=== PATIENT | female | born 1990 | race Caucasian/White ===

== ENCOUNTER 2017-12-18 18:18 | Emergency (ER) | payer OTHER, SELFPAY ==
[2017-12-18 18:26] VITALS: BP 130/65; PULSE 82; RESP 20; TEMP 37.1; O2SAT 98; BMI 34.4
--- NOTE | 2017-12-18 18:30 | DI.RAD.S_ITS ---
PROCEDURE: XR KNEE LT 3V INDICATIONS: fall, injury, pain TECHNIQUE: 3 views of the knee were acquired. COMPARISON: None. FINDINGS: Bones: No fractures or dislocations. No suspicious bony lesions. Surgical screw is noted traversing the distal femur. Hardware is intact without evidence of loosening. Soft tissues: No joint effusion. No suspicious soft tissue calcifications. IMPRESSION: No visualized acute fracture or dislocation. However, if clinical concern and/or pain persist, short interval imaging followup in 7-10 days is recommended, as occult injury cannot be definitively excluded. Dictated by: Lesa Bañuelos M.D. on 12/18/2017 at 20:40 Approved by: Lesa Bañuelos M.D. on 12/18/2017 at 20:40
--- NOTE | 2017-12-18 18:45 | ED.LOWEXIN ---
HPI - Extremity Injury (Lower) <Cynthia Soria PA-C - Last Filed: 12/18/17 21:51> General Chief Complaint: Extremity Injury, Lower Stated Complaint: FELL AT WORK,LEFT KNEE INJURY Time Seen by Provider: 12/18/17 18:45 Source: patient Mode of arrival: ambulatory Limitations: no limitations History of Present Illness HPI Narrative: This healthy 27-year-old slipped on some food at work and fell onto her left knee with it twisted behind her. She isn't sure whether she landed directly on the knee cap, but states she has had severe pain with any kind of movement or trying to bear weight since. She states that she hit hard when she fell. She states her hip seemed a little sore initially but feels fine now. She denies pain elsewhere in her leg such as her foot or ankle. She states that she can't tell if there is any weakness or laxity in her knee due to the pain. She is concerned because she had an ACL repair done on that knee 3 years ago and the anchor tore through her bone requiring a repeat repair, so concerned about the hardware. She denies any possibility of , she is on Depo-Provera and had her last injection . Related Data Previous Rx's Medication Instructions Recorded VIT#96/FERROUS FUM/FA 1 tab PO QDAY #90 tab 01/27/16 ( Vitamin) ibuprofen 600 mg PO Q6HP PRN #60 tab 02/04/16 albuterol sulfate [Ventolin HFA] 1 puff INH Q6HP PRN #8 gm 06/01/16 medroxyprogesterone 150 mg IM X1 #1 ea 06/02/16 Allergies Allergy/AdvReac Type Severity Reaction Status Date / Time venom-honey bee Allergy Intermediate SWELLING Unverified 09/08/17 12:37 [BEE VENOM (HONEY BEE)] iodine [IODINE] Allergy Mild RASH Unverified 09/08/17 12:37 Review of Systems <CHEMA James Last Filed: 12/18/17 21:51> Review of Systems All systems reviewed & are unremarkable except as noted in HPI and below PFSH <CHEMA James Last Filed: 12/18/17 21:51> Comment: No ETOH or street drugs Exam <CHEMA James Last Filed: 12/18/17 21:51> Narrative Exam Narrative: GENERAL APPEARANCE: Patient sitting comfortably, in no distress. LUNGS: Clear to auscultation bilaterally. HEART: Rate and rhythm regular without murmur, normal S1 and S2, no S3 or S4. MS: Moderate left knee effusion. She is tender across the joint line and a little bit superior to the patella. Range of motion is markedly limited secondary to tenderness. Unable to assess for laxity secondary to tenderness. She does not have tenderness over the lower leg or ankle. No point tenderness over the thigh or hip. EXTREMITIES: No cyanosis or edema Initial Vital Signs Initial Vital Signs: Vital Signs Temperature 98.8 F 12/18/17 18:26 Pulse Rate 82 12/18/17 18:26 Respiratory Rate 20 12/18/17 18:26 Blood Pressure 130/65 H 12/18/17 18:26 Pulse Oximetry 98 12/18/17 18:26 <Vivek Stuart DO - Last Filed: 12/19/17 05:01> Initial Vital Signs Initial Vital Signs: Vital Signs Temperature 98.8 F 12/18/17 18:26 Pulse Rate 82 12/18/17 18:26 Respiratory Rate 20 12/18/17 18:26 Blood Pressure 130/65 H 12/18/17 18:26 Pulse Oximetry 98 12/18/17 18:26 Course <Cynthia Soria PA-C - Last Filed: 12/18/17 21:51> Additional Information: Patient is able to ambulate a little bit with knee immobilizer. Unable to fully examine tonight due to degree of tenderness. She does have previous ACL repair times to due to problems with the hardware on that side. We discussed that certainly she could have another significant soft tissue injury. She is agreeable with re-evaluating this with her PCP or Orthopedics in a few days when hopefully the acute pain and swelling are better. She is on her feet constantly at work and advised she remain off of work until then. She is agreeable and will continue ibuprofen at home. She agreed to return if any acutely worsening symptoms in the interim Orders Ordered: Discontinued Medications Hydrocodone Bitart/Acetaminophen (Vicodin Prepack) 1 bottle MISC SEEINSTR ONE Stop: 12/18/17 20:58 Last Admin: 07/21/18 21:12 Dose: 1 bottle Vital Signs - 8 hr 12/18/17 21:18 Temperature 98.2 F Pulse Rate 78 Respiratory Rate 18 Blood Pressure 120/65 Pulse Oximetry 100 <Vivek Stuart DO - Last Filed: 12/19/17 05:01> Orders Ordered: Discontinued Medications Hydrocodone Bitart/Acetaminophen (Vicodin Prepack) 1 bottle MISC SEEINSTR ONE Stop: 12/18/17 20:58 Last Admin: 12/18/17 21:12 Dose: 1 bottle Vital Signs - 8 hr 12/18/17 21:18 Temperature 98.2 F Pulse Rate 78 Respiratory Rate 18 Blood Pressure 120/65 Pulse Oximetry 100 MDM - Extremity Injury (Lower) <Cynthia Soria PA-C - Last Filed: 12/18/17 21:51> Imaging Data knee: Radiologist's impression: View Report History [address] [address] XRay Report Signed Patient: Marika Yin MR#: [id number] : 1990 Acct:[id number] Age/Sex: 27 / F Date of Service: 12/18/17 Loc: ED Accession Number: [id number] Procedure: XR knee LT 3V Ordering Provider: Cyntiha Soria P.A-C PROCEDURE: XR KNEE LT 3V INDICATIONS: fall, injury, pain TECHNIQUE: 3 views of the knee were acquired. COMPARISON: None. FINDINGS: Bones: No fractures or dislocations. No suspicious bony lesions. Surgical screw is noted traversing the distal femur. Hardware is intact without evidence of loosening. Soft tissues: No joint effusion. No suspicious soft tissue calcifications. IMPRESSION: No visualized acute fracture or dislocation. However, if clinical concern and/or pain persist, short interval imaging followup in 7-10 days is recommended, as occult injury cannot be definitively excluded. Dictated by: Lesa Bañuelos M.D. on 12/18/2017 at 20:40 Approved by: Lesa Bañuelos M.D. on 12/18/2017 at 20:40 Discharge Plan Departure Patient Disposition: Home, Self-Care Clinical Impression: Effusion of left knee Discharge Date/Time: 12/18/17 21:20 Interventions: ED Discharge Assessment Last Done: 12/18/17 21:18 Instructions: DI for Knee Sprain, How to Use a Knee Immobilizer Activity Restrictions/Additional Instructions: It is not clear whether you just have a bad contusion to the knee with swelling in the soft tissues and a strain, versus another ligamentous injury. It is always possible that there is a fracture that did not show up on the x-ray as we talked about. Please wear the knee immobilizer and you can weightbear gently in that has you tolerate, but try to rest and elevate the knee over the next few days. Take ibuprofen 800 mg every 8 hr as needed for pain. You can also apply ice this evening. You should remain off of work since you are on your feet constantly, and follow up with your PCP or with Orthopedics 1st of next week to see how much you are improving and whether any further testing is needed. It is okay to see your PCP 1st if you wish, but I have given you the number for [facility] as well given your previous injury and surgery. Please return to the ED if you have any acutely worsening symptoms in the interim Thank you for your patience with our busy Emergency Department this evening. Prescriptions: No Action VIT#96/FERROUS FUM/FA ( Vitamin) 1 tab PO QDAY Qty: 90 RF: 3 ibuprofen 600 MG tablet 600 mg PO Q6HP PRNQty: 60 RF: 0 albuterol sulfate [Ventolin HFA] 90 MCG/PUFF HFA aerosol inhaler 1 puff INH Q6HP PRNQty: 8 RF: 0 medroxyprogesterone 150 MG/1 ML suspension 150 mg IM X1 Qty: 1 RF: 0 Referrals: [facility] [Outside] Roberto Downs MD [Primary Care Provider] - <Vivek Stuart DO - Last Filed: 12/19/17 05:01> [facility] ED Attending Nelia Attestation: I was immediately available in the department for consultation. Documentation has been reviewed. I agree with assessment and plan.
[2017-12-18 20:06] VITALS: BP 126/61; PULSE 76; RESP 18; TEMP 36.7; O2SAT 100
[2017-12-18] MEDS: HYDROCODONE/ACET 5/325 PREPACK 1 BOTTLE MISC (21:12)
[2017-12-18 21:18] VITALS: BP 120/65; PULSE 78; RESP 18; TEMP 36.8; O2SAT 100
== END 2017-12-18 21:20 | disposition home or self-care (01) ==
PROVIDERS: Emergency Provider Internal Medicine; Family Provider Obstetrics & Gynecology; PCP Family Medicine
DX: M25.462 Effusion, left knee (principal); Y99.0 Civilian activity done for income or pay
CPT/HCPCS: 73562; 99283

== ENCOUNTER 2018-05-17 10:39 | Day surgery (SDC) | payer OTHER, SELFPAY ==
[2018-05-13 08:52] VITALS: BMI 39.4
[2018-05-17 10:58] VITALS: BP 120/78; PULSE 86; RESP 13; TEMP 37; O2SAT 99; BMI 39.4
[2018-05-17] MEDS: LACTATED RINGERS 1,000 ML 42 ML IV (11:53)
[2018-05-17] MEDS: MIDAZOLAM 2 MG/2 ML VIAL IV (12:07)
--- NOTE | 2018-05-17 12:22 | SUR.PREOP ---
Block start time [1204] . Monitoring initiated and maintained throughout procedure. Oxygen and medications given per anesthesiologist instructions. Patient remained stable throughout procedure, no adverse reactions noted. Block end time [1217].
[2018-05-17] MEDS: CEFAZOLIN 2 GM/100 ML FROZ.PIGGY IV (12:40)
--- NOTE | 2018-05-17 12:49 | PM.PREOP ---
Pre-operative Note Interval Note Pre-op Check: Yes History & Physical Reviewed by Physician and Yes Exam Performed Changes: No
[2018-05-17] MEDS: BUPIVACAINE 0.5% (PF) VIAL 10 ML INJ (14:08)
[2018-05-17 14:27] VITALS: BP 134/74; PULSE 102; RESP 20; TEMP 36.4; O2SAT 97
--- NOTE | 2018-05-17 14:27 | PM.OP.1 ---
Operative Date/Time/Diagnoses Date of procedure: 05/17/18 Time of procedure: 14:15 Pre-op diagnosis: Failure of left knee ACL reconstruction Post-op diagnosis: same Procedure & Clinicians Procedure: Revision left knee anterior cruciate ligament reconstruction with tibialis anterior allograft Same procedure as scheduled: Yes Indications: The patient is a 27-year-old woman who previously has undergone an anterior cruciate ligament reconstruction elsewhere. She injured her knee at work and has had persistent instability despite nonoperative management since that injury. After discussion of the risks benefits and alternatives she has agreed to proceed with revision ACL reconstruction with allograft tendon. Risks discussed included but were not limited to: Failure to improve either pain or sensations of instability, stiffness, infection, deep venous thrombosis, pulmonary embolism, stroke, myocardial infarction, permanent paralysis and . Surgeon: Toni Balderrama Chief Risk Officer: Maame Weber Click Yes if Unassisted: No Anesthesia Type: General, Peripheral nerve block and Local Operative Notes Findings: 1. Minor scarring in the suprapatellar pouch 2. Normal patellofemoral joint 3. Normal medial and lateral gutters 4. Medial compartment with intact medial meniscus and minor chondromalacia of the femoral condyle, grade 2 in a small area on the weight-bearing surface. 5. Intercondylar notch notable for a small remnant of the previous graft with only sutures attached to the lateral femoral condyle and a loose bone fragment posteriorly presumably the bone block of a prior bone patellar tendon bone graft. 6. Intact lateral meniscus 7. Posterolateral compartment normal 8. Posterior medial compartment not visualized Closure Type: primary Specimen(s): none sent Implants & Drains: Arthrex ACL Tightrope femoral fixation and DePuy/Mitek Intrafix tibial fixation with a sheath and 7-9 mm X 30 mm screw. Applied: implant(s) Estimated Blood Loss (mL): 15 Blood products transfused: none Tourniquet time (min): 39 Procedure in detail: The patient was seen in the preoperative area where she identified the left knee as the operative site and this was marked with my initials. She received preoperative antibiotics with an appropriate 1st generation cephalosporin and underwent a femoral nerve block from Anesthesia for postoperative pain control. She was taken to the operating room and placed on the operating room table in a supine position. A tourniquet was placed about the proximal left thigh. The left leg was examined under anesthesia with findings of a grade 3 pivot shift and a grade 3 Hollie's. The left leg was prepared from the toes to the tourniquet with ChloraPrep in the usual fashion and draped through sterile drapes. A superior medial portal was created and the pump cannula inserted. The knee was inflated with arthroscopic solution and a lateral portal created for the arthroscope. Diagnostic arthroscopy ensued with the result given above. During diagnostic arthroscopy a medial portal was created for the probe and other tools. After confirming the diagnosis, the allograft was opened and prepared at the back table by my neurosurgical physician assistant. The graft remnant was excised in the knee. A flip cutter Reamer was placed in the center of the ACL footprint and used to ream a new femoral socket. A passing suture was placed. The tibial tunnel was then drilled in the center of the tibial footprint. Both of these were 8 mm tunnels to match the size of the graft. The passing suture was then pulled out through the tibial tunnel. This was used to pull the sutures from the Tightrope fixation device through the femoral tunnel. The femoral button was delivered to the lateral femoral cortex and purchase was checked by pulling firmly on the graft. The graft was then advanced into the femoral socket. The graft had been pre tensioned on the back table and tension was maintained on the inferior limbs of the graft while a dilator was placed in the tibial tunnel with the knee in full extension. This was followed by the tibial sheath and the interference screw. This gave good fixation in the tibia as well. I tested the knee for stability there was a grade 0 Hollie's and a grade 0 pivot shift. The femoral fixation was backed up by tying a knot over the button with the traction sutures. The throes of the suture were advanced to the button using a knot pusher. The sutures on both the femoral and tibial sides of the graft were then cut. All portal wounds were closed with 4 0 Monocryl. The tibial tunnel wound was closed with interrupted 3 O Vicryl subcutaneous sutures and 4 0 Monocryl. Steri-Strips were applied. Local anesthetic was injected for additional postoperative pain control. A dressing of sterile 4x4s, sterile cast padding and an Jaskaran wrap was applied. The patient was transported to the recovery room in good condition having tolerated the procedure well. Complications: none Condition: stable Disposition: PACU Plan for aftercare: The patient will be maintained toe-touch weight-bearing until her block has resolved. She may then weightbear as tolerated using crutches for comfort. She will be maintained on a standard ACL protocol however will not likely be released to full cutting activities for 9-12 months due to the use of an allograft.
[2018-05-17 14:30] VITALS: BP 132/94; PULSE 99; RESP 15; TEMP 36.4; O2SAT 98
[2018-05-17 14:35] VITALS: BP 129/86; PULSE 104; RESP 12; TEMP 37.2; O2SAT 97
[2018-05-17] MEDS: fentaNYL 100 MCG/2 ML INJ 50 MCG IV ×2 (14:40→14:45)
[2018-05-17 14:50] VITALS: BP 140/88; PULSE 93; RESP 20; TEMP 37.2; O2SAT 98
[2018-05-17 14:55] VITALS: BP 126/84; PULSE 100; RESP 18; TEMP 37.2; O2SAT 98
[2018-05-17] MEDS: OXYCODONE/ACETAMINOPHEN 5/325 TABLET 1 TAB PO (14:55)
== END 2018-05-17 15:26 | disposition home or self-care (01) ==
PROVIDERS: Family Provider Obstetrics & Gynecology; PCP Family Medicine; Visit Provider Orthopaedic Surgery
PROC: (CPT 29888; principal; 2018-05-17 12:45)
DX: S83.512A Sprain of anterior cruciate ligament of left knee, initial encounter (principal); E66.9 Obesity, unspecified; Z68.39 Body mass index [BMI] 39.0-39.9, adult; G89.18 Other acute postprocedural pain; Y92.511 Restaurant or cafe as the place of occurrence of the external cause; J45.909 Unspecified asthma, uncomplicated; F17.210 Nicotine dependence, cigarettes, uncomplicated; W01.0XXA Fall on same level from slipping, tripping and stumbling without subsequent striking against object, initial encounter
CPT/HCPCS: 29888; 64447; 64450; J0690; J1100; J2250; J2405; J2704; J3010

== ENCOUNTER 2020-04-23 13:49 | Emergency (ER) | payer OTHER, MEDICAID, SELFPAY ==
[2020-04-23 14:08] VITALS: BP 136/74; PULSE 98; RESP 16; TEMP 37.2; O2SAT 100; BMI 40.7
--- NOTE | 2020-04-23 14:53 | ED.URI ---
HPI - URI/Sore Throat General Chief Complaint: Upper Respiratory Symptoms Stated Complaint: Sore throat, think she has strep Time Seen by Provider: 04/23/20 14:10 Source: patient Mode of arrival: Ambulatory History of Present Illness HPI Narrative: 29yo female presents to the emergency department for a sore throat for the past 4 days. Patient states she was exposed to people who were positive for strep. She does have a history of allergies and currently has pets she has chronic rhinitis and asthma. She denies any worsening of these conditions. She denies any rhinorrhea, chest pain, cough, nausea, vomiting, diarrhea, dizziness, or any other concerns. Related Data Home Medications Medication Instructions Recorded Confirmed albuterol sulfate [Ventolin HFA] 1 puff INH Q6HP PRN 05/13/18 05/13/18 ibuprofen 600 mg PO Q6HP PRN 05/13/18 05/13/18 albuterol sulfate [ProAir HFA] 1 puff INHALATION Q6H PRN 05/17/18 05/17/18 Previous Rx's Medication Instructions Recorded VIT#96/FERROUS FUM/FA 1 tab PO QDAY #90 tab 01/27/16 ( Vitamin) medroxyprogesterone 150 mg IM X1 #1 ea 06/02/16 hydroxyzine pamoate 25 mg PO Q4HR PRN #40 cap 05/17/18 oxycodone 5 mg PO Q3HR PRN #40 tab 05/17/18 Allergies Allergy/AdvReac Type Severity Reaction Status Date / Time venom-honey bee Allergy Intermediate SWELLING Verified 05/17/18 11:14 [BEE VENOM (HONEY BEE)] iodine [IODINE] Allergy Mild RASH Verified 05/17/18 11:14 Patient History Medical History (Updated 03/10/18 @ 10:00 by Carla Mtz) Asthma Chicken pox (1995) Hayfever Surgical History (Updated 03/10/18 @ 10:00 by Carla Mtz) Anesthesia Status post knee surgery (10/12/14) Family History (Updated 03/10/18 @ 10:05 by Carla Mtz) Mother High cholesterol Grandfather Diabetes mellitus Cancer Pancreatic cancer Social History household members: significant other Smoking Status: Current every day smoker alcohol intake: former Smoking Status: Current every day smoker Substance Use Type: does not use Exam Initial Vital Signs Initial Vital Signs: Vital Signs Temperature 98.9 F 04/23/20 14:08 Pulse Rate 98 H 04/23/20 14:08 Respiratory Rate 16 04/23/20 14:08 Blood Pressure 136/74 04/23/20 14:08 Pulse Oximetry 100 04/23/20 14:08 Course Orders Ordered: ED Orders 04/23/20 14:51 COVID19 Stat Throat Culture Stat Vital Signs Vital signs: Vital Signs - 8 hr 04/23/20 14:08 Temperature 98.9 F Pulse Rate 98 H Respiratory Rate 16 Blood Pressure 136/74 Pulse Oximetry 100 MDM - URI/Sore Throat Lab Data Labs: Point of Care Testing Rapid Strep A Negative Discharge Plan Departure Prescriptions: No Action VIT#96/FERROUS FUM/FA ( Vitamin) 1 tab PO QDAY Qty: 90 RF: 3 medroxyprogesterone 150 MG/1 ML suspension 150 mg IM X1 Qty: 1 RF: 0 ibuprofen 600 MG tablet 600 mg PO Q6HP PRN (Reason: pain) RF: 0 albuterol sulfate [Ventolin HFA] 90 MCG/PUFF HFA aerosol inhaler 1 puff INH Q6HP PRN (Reason: Asthma) RF: 0 albuterol sulfate [ProAir HFA] 90 mcg/actuation Hfa Aerosol Inhaler 1 puff INHALATION Q6H PRN (Reason: Wheezing) RF: 0 oxycodone 5 mg Tablet 5 mg PO Q3HR PRN (Reason: Pain, Moderate (4-6)) Qty: 40 RF: 0 hydroxyzine pamoate 25 mg Capsule 25 mg PO Q4HR PRN (Reason: Spasms) Qty: 40 RF: 0
[2020-04-23 15:21] LABS: COVID19 -Nasal RAPID Negative (Negative)
--- NOTE | 2020-04-23 15:28 | ED.URI ---
HPI - URI/Sore Throat <JACKIE Wahl - Last Filed: 04/23/20 18:07> General Chief Complaint: Upper Respiratory Symptoms Stated Complaint: Sore throat, think she has strep Time Seen by Provider: 04/23/20 14:10 Source: patient Mode of arrival: Ambulatory History of Present Illness HPI Narrative: 29yo female presents to the ED for a sore throat for the past 4 days. Patient states she was recently exposed to children who are positive for strep. Patient has a history of seasonal allergies, she takes Singulair for these. She has a history of asthma. She denies any worsening asthma symptoms. Patient denies any increased rhinitis, cough, shortness of breath, fevers, nausea, vomiting, diarrhea, or any other concerns. She denies any known exposure to COVID-19. Related Data Home Medications Medication Instructions Recorded Confirmed albuterol sulfate [Ventolin HFA] 1 puff INH Q6HP PRN 05/13/18 05/13/18 ibuprofen 600 mg PO Q6HP PRN 05/13/18 05/13/18 albuterol sulfate [ProAir HFA] 1 puff INHALATION Q6H PRN 05/17/18 05/17/18 Previous Rx's Medication Instructions Recorded VIT#96/FERROUS FUM/FA 1 tab PO QDAY #90 tab 01/27/16 ( Vitamin) medroxyprogesterone 150 mg IM X1 #1 ea 06/02/16 hydroxyzine pamoate 25 mg PO Q4HR PRN #40 cap 05/17/18 oxycodone 5 mg PO Q3HR PRN #40 tab 05/17/18 Allergies Allergy/AdvReac Type Severity Reaction Status Date / Time venom-honey bee Allergy Intermediate SWELLING Verified 05/17/18 11:14 [BEE VENOM (HONEY BEE)] iodine [IODINE] Allergy Mild RASH Verified 05/17/18 11:14 Review of Systems <JACKIE Wahl - Last Filed: 04/23/20 18:07> Review of Systems Narrative: REVIEW OF SYSTEMS: GENERAL: Denies fevers. HENT: No head trauma. Reports sore throat, see HPI. CARDIOVASCULAR: No chest pain. RESPIRATORY: Denies cough, see HPI. GASTROINTESTINAL: No nausea, vomiting, diarrhea, or constipation. MUSCULOSKELETAL: No weakness or injury. INTEGUMENTARY: No rash. Patient History <JACKIE Wahl - Last Filed: 04/23/20 18:07> Medical History Asthma Chicken pox (1995) Hayfever Surgical History Anesthesia Status post knee surgery (10/12/14) Family History Mother High cholesterol Grandfather Diabetes mellitus Cancer Pancreatic cancer Social History household members: significant other Smoking Status: Current every day smoker alcohol intake: former Smoking Status: Current every day smoker Substance Use Type: does not use Exam <JACKIE Wahl - Last Filed: 04/23/20 18:07> Initial Vital Signs Initial Vital Signs: Vital Signs Temperature 98.9 F 04/23/20 14:08 Pulse Rate 98 H 04/23/20 14:08 Respiratory Rate 16 04/23/20 14:08 Blood Pressure 136/74 04/23/20 14:08 Pulse Oximetry 100 04/23/20 14:08 PHYSICAL EXAMINATION: GENERAL: Well groomed, alert, and cooperative. Answers questions promptly and appropriately. HENT: Normocephalic, atraumatic. Oropharynx with slight erythema, tonsils 1+, no exudate present. EYES: Conjunctiva pink, sclera white, no periorbital swelling. No discharge. CHEST: Normal to inspection and without deformities. CARDIOVASCULAR: S1 and S2 sounds normal. Regular rate and rhythm, no murmurs, clicks, or bruits. RESPIRATORY: Normal respiratory rate, trachea midline, airway patent. No stridor, nasal flaring or accessory muscle use. Able to speak in full sentences. Lungs are clear in all freeman without wheeze, rhonchi, or crackles. MUSCULOSKELETAL: Normal gait and coordination. Equal tone and mass bilaterally. EXTREMITIES: Moves all extremities. SKIN: Warm, dry, soft, appropriate color for ethnicity. No lesions, rashes, or wounds to visualized areas. NEURO: Alert and Oriented X 3. Good coordination. N <Robetro Simms DO - Last Filed: 04/23/20 18:37> Initial Vital Signs Initial Vital Signs: Vital Signs Temperature 98.9 F 04/23/20 14:08 Pulse Rate 98 H 04/23/20 14:08 Respiratory Rate 16 04/23/20 14:08 Blood Pressure 136/74 04/23/20 14:08 Pulse Oximetry 100 04/23/20 14:08 Course <JACKIE Wahl - Last Filed: 04/23/20 18:07> Course Course Narrative: Negative COVID and strep test. Orders Ordered: ED Orders 04/23/20 14:55 COVID19 Stat Throat Culture Stat Vital Signs Vital signs: Vital Signs - 8 hr 04/23/20 14:08 Temperature 98.9 F Pulse Rate 98 H Respiratory Rate 16 Blood Pressure 136/74 Pulse Oximetry 100 <Roberto Simms DO - Last Filed: 04/23/20 18:37> Orders Ordered: ED Orders 04/23/20 14:55 COVID19 Stat Throat Culture Stat Vital Signs Vital signs: Vital Signs - 8 hr 04/23/20 14:08 Temperature 98.9 F Pulse Rate 98 H Respiratory Rate 16 Blood Pressure 136/74 Pulse Oximetry 100 MDM - URI/Sore Throat <JACKIE Wahl - Last Filed: 04/23/20 18:07> Medical Records Attestation: I reviewed the patient's medical records. Lab Data Attestation: I reviewed the patient's lab results. Labs: Lab Results 04/23/20 Range/Units 14:55 COVID-19 PCR Negative (Negative) Point of Care Testing Rapid Strep A Negative MDM Narrative Medical decision making narrative: History and examination concerning for viral pharyngitis. Less likely bacterial due to negative strep test. Less likely COVID-19 as rapid swab was negative at this time. Due to patient's exposure to strep positive individuals, culture was sent to lab for closer evaluation. She was encouraged to use throat lozenges, gargle warm salt water, drink plenty of fluids. Follow-up was encouraged. Patient agreed to plan of care verbalized understanding. <Roberto Simms DO - Last Filed: 04/23/20 18:37> Lab Data Labs: Lab Results 04/23/20 Range/Units 14:55 COVID-19 PCR Negative (Negative) Point of Care Testing Rapid Strep A Negative Discharge Plan Departure Patient Disposition: Home Clinical Impression: Pharyngitis Qualifiers: Pharyngitis/tonsillitis etiology: unspecified etiology Qualified Code(s): J02.9 - Acute pharyngitis, unspecified Instructions: DI for Viral Pharyngitis Activity Restrictions/Additional Instructions: Thank you for entrusting me with your care today. As discussed, your Strep A and COVID tests are negative. We sent a throat culture to lab which test for other strains of strep, this takes approximately 2 days. If positive, we will call you with the results. I suggest taking Flonase, 1 spray each nostril morning and night for the next week to help with your sore throat. Use warm salt water gargles and lozenges. Follow-up with PCP in 1-2 weeks if symptoms continue. Return emergency department for any new or worsening symptoms. Prescriptions: No Action VIT#96/FERROUS FUM/FA ( Vitamin) 1 tab PO QDAY Qty: 90 RF: 3 medroxyprogesterone 150 MG/1 ML suspension 150 mg IM X1 Qty: 1 RF: 0 ibuprofen 600 MG tablet 600 mg PO Q6HP PRN (Reason: pain) RF: 0 albuterol sulfate [Ventolin HFA] 90 MCG/PUFF HFA aerosol inhaler 1 puff INH Q6HP PRN (Reason: Asthma) RF: 0 albuterol sulfate [ProAir HFA] 90 mcg/actuation Hfa Aerosol Inhaler 1 puff INHALATION Q6H PRN (Reason: Wheezing) RF: 0 oxycodone 5 mg Tablet 5 mg PO Q3HR PRN (Reason: Pain, Moderate (4-6)) Qty: 40 RF: 0 hydroxyzine pamoate 25 mg Capsule 25 mg PO Q4HR PRN (Reason: Spasms) Qty: 40 RF: 0 Referrals: Roberto Downs MD [Primary Care Provider] - <Roberto Simms DO - Last Filed: 04/23/20 18:37> Cosign ED Attending Cosignature Attestation: Dr Simms Co-Sign Statement: I was available for consultation during this patient's emergency department visit. This chart is signed by myself for administrative purposes only. I did not have direct contact with this patient during this visit. They were seen independently by the APC.
== END 2020-04-23 15:54 | disposition home or self-care (01) ==
PROVIDERS: Emergency Provider Nurse Practitioner; Family Provider Obstetrics & Gynecology; PCP Family Medicine
DX: J02.9 Acute pharyngitis, unspecified (principal)
CPT/HCPCS: 87070; 87077; 87147; 87635; 87880; 99281; 99282

== ENCOUNTER 2020-05-07 13:46 | Emergency (ER) | payer OTHER, MEDICAID, SELFPAY ==
[2020-05-07 14:12] VITALS: BP 124/58; PULSE 93; RESP 16; TEMP 36.7; O2SAT 100; BMI 40.7
--- NOTE | 2020-05-07 14:28 | ED.GENADULT ---
HPI - General Adult General Chief complaint: Abdominal Pain Stated complaint: Upper Groin Area Pain Time Seen by Provider: 05/07/20 14:17 Source: patient Mode of arrival: Ambulatory Limitations: no limitations History of Present Illness HPI narrative: 29-year-old female here for evaluation of left-sided adnexal pain. States that she has had symptoms like this in the past with a resolved on their own. The symptoms she is having now started yesterday. No vaginal bleeding. No urinary symptoms. No change in bowel habits. Has not tried anything for symptoms prior to arrival. Related Data Home Medications Medication Instructions Recorded Confirmed albuterol sulfate [Ventolin HFA] 1 puff INH Q6HP PRN 05/13/18 05/13/18 ibuprofen 600 mg PO Q6HP PRN 05/13/18 05/13/18 albuterol sulfate [ProAir HFA] 1 puff INHALATION Q6H PRN 05/17/18 05/17/18 Previous Rx's Medication Instructions Recorded VIT#96/FERROUS FUM/FA 1 tab PO QDAY #90 tab 01/27/16 ( Vitamin) medroxyprogesterone 150 mg IM X1 #1 ea 06/02/16 hydroxyzine pamoate 25 mg PO Q4HR PRN #40 cap 05/17/18 oxycodone 5 mg PO Q3HR PRN #40 tab 05/17/18 Allergies Allergy/AdvReac Type Severity Reaction Status Date / Time venom-honey bee Allergy Intermediate SWELLING Verified 05/17/18 11:14 [BEE VENOM (HONEY BEE)] iodine [IODINE] Allergy Mild RASH Verified 05/07/20 14:21 Patient History Medical History Asthma Chicken pox (1995) Hayfever Surgical History Anesthesia Status post knee surgery (10/12/14) Family History Mother High cholesterol Grandfather Diabetes mellitus Cancer Pancreatic cancer Social History household members: significant other Smoking Status: Current every day smoker alcohol intake: former Smoking Status: Current every day smoker alcohol intake frequency: other Substance Use Type: does not use Exam Initial Vital Signs Initial Vital Signs: Vital Signs Temperature 98.1 F 05/07/20 14:12 Pulse Rate 93 H 05/07/20 14:12 Respiratory Rate 16 05/07/20 14:12 Blood Pressure 124/58 L 05/07/20 14:12 Pulse Oximetry 100 05/07/20 14:12 Course Orders Ordered: ED Orders 05/07/20 14:30 US pelvic complete Stat Vital Signs Vital signs: Vital Signs - 8 hr 05/07/20 14:12 Temperature 98.1 F Pulse Rate 93 H Respiratory Rate 16 Blood Pressure 124/58 L Pulse Oximetry 100 Medical Decision Making Medical Records Medical records reviewed: Yes I reviewed the patient's medical records. Lab Data Lab results reviewed: Yes I reviewed the patient's lab results. Labs: Point of Care Testing Test Results Negative Urine Dip Bedside Urine Glucose Negative Bedside Urine Bilirubin - Negative Bedside Urine Ketone - Negative Urine Specific [place] 1.025 Bedside Urine Occult Blood - Negative Bedside Urine pH 6.0 Bedside Urine Protein - Negative Bedside Urine Urobilinogen - Negative Bedside Urine Nitrite - Negative Bedside Urine Leukocytes - Negative Esterase Point of care testing: Point of Care Testing Test Results Negative Urine Dip Bedside Urine Glucose Negative Bedside Urine Bilirubin - Negative Bedside Urine Ketone - Negative Urine Specific [place] 1.025 Bedside Urine Occult Blood - Negative Bedside Urine pH 6.0 Bedside Urine Protein - Negative Bedside Urine Urobilinogen - Negative Bedside Urine Nitrite - Negative Bedside Urine Leukocytes - Negative Esterase Imaging Data US - DIGITAL ADVISOR: Radiologist's Impression: Marika Yin P 29 F [address] [id number] ReportSigned Patient: Marika Yin PMR#: [id number]: 1990Acct:[id number]/Sex: 29 / FDate of Service: 05/07/20Loc: EDAccession Number: [id number] Procedure: US pelvic complete Ordering Provider: Roberto Simms D.O. PROCEDURE: US PELVIC COMPLETE INDICATIONS: LEFT ADNEXAL PAIN. EVALUATE FOR OVARIAN PATHOLOGY TECHNIQUE: Real-time scanning was performed of the pelvic organs, with image documentation. Additional endovaginal scanning was necessary due to incomplete visualization of the adnexal and endometrial structures by transabdominal scanning. COMPARISON: [facility], [place], OB COMPLETE 14WKS OR MORE, 12/23/2015, 17:19. [facility], [place], OB COMPLETE 14WKS OR MORE, 01/06/2016, 17:11. FINDINGS: Transabdominal scanning: Limited scanning through the kidneys shows no hydronephrosis. No pathologic free abdominal or pelvic fluid. Endovaginal scanning: Uterus: Uterus is normal in size at 6.9 x 3.4 x 4.5 cm. The endometrium measures 2.4 mm in combined thickness. Myometrium is heterogeneous. There are calcific foci in myometrium. Ovaries: Right ovary measures 2.7 x 1.3 x 1.8 cm. Left ovary measures 2.8 x 2.0 x 1.9 cm. There is a 1.7 x 1.8 x 1.5 cm left ovarian cyst. IMPRESSION: 1. A 1.7 x 1.8 x 1.5 cm left ovarian cyst. Otherwise normal ovaries. 2. Mild medium is heterogeneous with calcification. Endometrium is normal in thickness. 3. No free pelvic fluid. Dictated by: Harry Rodríguez M.D. on 05/07/2020 at 16:37 Approved by: Harry Rodríguez M.D. on 05/07/2020 at 16:40 MDM Narrative Medical decision making narrative: Patient is on the Depo shot. Her last injection was 2 weeks ago when she had her last menstrual cycle. She still has menstrual cycles while on the Depo. The ultrasound shows a left-sided ovarian cyst. This explains her discomfort. Her urinalysis and test were negative. We did discuss use of Tylenol and/or ibuprofen. She was given return precautions. She expressed understanding and agreement. Discharge Plan Departure Patient Disposition: Home Clinical Impression: Ovarian cyst Instructions: DI for Ovarian Cyst Activity Restrictions/Additional Instructions: Continue all of your medications as directed. Contact your primary provider for follow-up. Return to the emergency department for any new or worsening symptoms Prescriptions: No Action VIT#96/FERROUS FUM/FA ( Vitamin) 1 tab PO QDAY Qty: 90 RF: 3 medroxyprogesterone 150 MG/1 ML suspension 150 mg IM X1 Qty: 1 RF: 0 ibuprofen 600 MG tablet 600 mg PO Q6HP PRN (Reason: pain) RF: 0 albuterol sulfate [Ventolin HFA] 90 MCG/PUFF HFA aerosol inhaler 1 puff INH Q6HP PRN (Reason: Asthma) RF: 0 albuterol sulfate [ProAir HFA] 90 mcg/actuation Hfa Aerosol Inhaler 1 puff INHALATION Q6H PRN (Reason: Wheezing) RF: 0 oxycodone 5 mg Tablet 5 mg PO Q3HR PRN (Reason: Pain, Moderate (4-6)) Qty: 40 RF: 0 hydroxyzine pamoate 25 mg Capsule 25 mg PO Q4HR PRN (Reason: Spasms) Qty: 40 RF: 0
[2020-05-07 16:49] VITALS: BP 128/60; PULSE 90; RESP 16; O2SAT 100
== END 2020-05-07 16:50 | disposition home or self-care (01) ==
PROVIDERS: Emergency Provider Emergency Medicine; Family Provider Obstetrics & Gynecology
DX: N83.202 Unspecified ovarian cyst, left side (principal)
CPT/HCPCS: 76830; 76856; 81003; 81025; 99283

== ENCOUNTER 2020-11-02 14:10 | Emergency (ER) | payer OTHER, MEDICAID, SELFPAY ==
[2020-11-02 14:58] VITALS: BP 128/61; PULSE 91; RESP 18; TEMP 36.6; O2SAT 99; BMI 39.1
[2020-11-02] MEDS: KETOROLAC 30 MG/ML VIAL IM (16:36)
--- NOTE | 2020-11-02 16:59 | ED_ITS ---
HPI - Headache General Chief Complaint: Headache Stated Complaint: 5 day headache. worse today Time Seen by Provider: 11/02/20 16:14 Mode of arrival: Ambulatory Limitations: no limitations History of Present Illness HPI Narrative: Patient is a 30-year-old female history of headache presenting with 5 days of a headache. She is typically Tylenol less her headache go away however not quite working this time. She is sensitive to the light. She denies any nausea vomiting or fever. She has no numbness tingling weakness or other symptoms. MD Complaint: headache Onset (ago): day(s) (5) Related Data Home Medications Medication Instructions Recorded Confirmed albuterol sulfate [Ventolin HFA] 1 puff INH Q6HP PRN 05/13/18 05/13/18 ibuprofen 600 mg PO Q6HP PRN 05/13/18 05/13/18 albuterol sulfate [ProAir HFA] 1 puff INHALATION Q6H PRN 05/17/18 05/17/18 Previous Rx's Medication Instructions Recorded VIT#96/FERROUS FUM/FA 1 tab PO QDAY #90 tab 01/27/16 ( Vitamin) medroxyprogesterone 150 mg IM X1 #1 ea 06/02/16 hydroxyzine pamoate 25 mg PO Q4HR PRN #40 cap 05/17/18 oxycodone 5 mg PO Q3HR PRN #40 tab 05/17/18 Allergies Allergy/AdvReac Type Severity Reaction Status Date / Time venom-honey bee Allergy Intermediate SWELLING Verified 11/02/20 14:58 [BEE VENOM (HONEY BEE)] iodine [IODINE] Allergy Mild RASH Verified 11/02/20 14:58 Review of Systems Review of Systems Narrative: GENERAL: Denies chills, fatigue, malaise, fever, sweats, travel HEENT: Denies sinus pain, ear pain, sore throat, difficulty swallowing, neck pa in RESPIRATORY: Denies dyspnea, cough, wheezing, hemoptysis, sputum. CARDIOVASCULAR: Denies chest pain, palpitations, orthopnea, edema GASTROINTESTINAL: Denies nausea, vomiting, abdominal pain, diarrhea, constipation, melena. : Denies dysuria, frequency, incontinence, hematuria, urinary retention, flank pain. MUSCULOSKELETAL: Denies weakness, joint pain, or bony pain SKIN: No rash, no erythema, no pruritus NEUROLOGIC: + headache PSYCHIATRIC: No concerning psychosocial issues. 12 point review of systems is negative except for those stated above and HPI Patient History Medical History Asthma Chicken pox (1995) Hayfever Surgical History Anesthesia Status post knee surgery (10/12/14) Family History Mother High cholesterol Grandfather Diabetes mellitus Cancer Pancreatic cancer Social History household members: significant other Smoking Status: Current every day smoker alcohol intake: former Smoking Status: Current every day smoker alcohol intake frequency: other Substance Use Type: does not use Exam Initial Vital Signs Initial Vital Signs: Vital Signs Temperature 97.9 F 11/02/20 14:58 Pulse Rate 91 H 11/02/20 14:58 Respiratory Rate 18 11/02/20 14:58 Blood Pressure 128/61 11/02/20 14:58 Pulse Oximetry 99 11/02/20 14:58 GENERAL: Alert 30-year-old female and in no acute distress. HEENT: Head atraumatic,EOMI, pupils reactive, face symmetric, moist mucous membranes, no Brudzinski or Kernig's sign CARDIOVASCULAR: Regular rate and rhythm without murmurs, rubs or gallops. RESPIRATORY: Breath sounds equal bilaterally, no wheezes rales or rhonchi. ABDOMEN: Soft, nontender. Normoactive bowel sounds all 4 quadrants. No guarding or rebound. EXTREMITIES: Normal range of motion, no clubbing or edema. Neurovascularly intact NEUROLOGICAL: Alert and oriented x4.Normal gait and speech. Cranial nerves II through XII grossly intact. Strength equal bilaterally SKIN: Warm, dry, no laceration, no petechiae, no rashes or lesions. Scores NIH Stroke Scale Level of Conciousness: Alert, keenly responsive Ask month/age: Answers both questions correctly. Open/close eyes, close hand: Performs both tasks correctly Best gaze horizontal: Normal Visual freeman: No visual loss Facial palsy: Normal symetrical movement Left arm drift: No drift for full 10 sec Right arm drift: No drift for full 10 sec Left leg drift: No drift for full 5 sec Right leg drift: No drift for full 5 sec Limb ataxia: Absent Sensory on face/arms/legs: Normal, no sensory loss Best language: No aphasia, normal Dysarthria: Normal Extinction or inattention: No abnormality Total NIH Stroke scale score: 0 Course Orders Ordered: Discontinued Medications Acetaminophen (Acetaminophen 325 Mg Tablet) 975 mg PO NOW ONE Stop: 11/02/20 17:53 Last Admin: 11/02/20 17:58 Dose: 975 mg Documented by: EVERT Ketorolac Tromethamine (Ketorolac 30 Mg/Ml Vial) 30 mg IM NOW ONE Stop: 11/02/20 16:27 Last Admin: 11/02/20 16:36 Dose: 30 mg Documented by: EVERT Vital Signs Vital signs: Vital Signs - 8 hr 11/02/20 14:58 Temperature 97.9 F Pulse Rate 91 H Respiratory Rate 18 Blood Pressure 128/61 Pulse Oximetry 99 MDM - Headache MDM Narrative Medical decision making narrative: She overall appears well afebrile has not had Tylenol since yesterday neck is supple. This is not the worse headache of her life but it is lasting longer than most. headache improved with Toradol, but not completely gone. She still was feeling it throbbing a little bit if she moved after Toradol show she drank water and received 975 Tylenol and he says that helped and feels ready in able to go. She has no nausea vomiting or focal deficits. At this time imaging not indicated. Discharge Plan Departure Patient Disposition: Home Clinical Impression: Headache Qualifiers: Headache type: unspecified Headache chronicity pattern: acute headache Intractability: not intractable Qualified Code(s): R51.9 - Headache, unspecified Instructions: DI for Headache Activity Restrictions/Additional Instructions: *You have been diagnosed with headache *What to do: At this time here headache has improved I recommend you go home and rest continue to drink fluid *Continue to take medications as directed Tylenol 1000 mg every 6 hours if needed for [id number] pain *Follow up with your primary care provider in 2-3 days *Return to ER if you should have persistent headache, persistent vomiting, weakness, fever or any new, worsening or concerning symptoms Prescriptions: No Action VIT#96/FERROUS FUM/FA ( Vitamin) 1 tab PO QDAY Qty: 90 RF: 3 medroxyprogesterone 150 MG/1 ML suspension 150 mg IM X1 Qty: 1 RF: 0 ibuprofen 600 MG tablet 600 mg PO Q6HP PRN (Reason: pain) RF: 0 albuterol sulfate [Ventolin HFA] 90 MCG/PUFF HFA aerosol inhaler 1 puff INH Q6HP PRN (Reason: Asthma) RF: 0 albuterol sulfate [ProAir HFA] 90 mcg/actuation Hfa Aerosol Inhaler 1 puff INHALATION Q6H PRN (Reason: Wheezing) RF: 0 oxycodone 5 mg Tablet 5 mg PO Q3HR PRN (Reason: Pain, Moderate (4-6)) Qty: 40 RF: 0 hydroxyzine pamoate 25 mg Capsule 25 mg PO Q4HR PRN (Reason: Spasms) Qty: 40 RF: 0
[2020-11-02] MEDS: ACETAMINOPHEN 325 MG TABLET 975 MG PO (17:58)
[2020-11-02 18:43] VITALS: BP 122/74; PULSE 78; RESP 18; O2SAT 99
== END 2020-11-02 18:44 | disposition home or self-care (01) ==
PROVIDERS: Emergency Provider Emergency Medicine; Family Provider Obstetrics & Gynecology
DX: R51.9 Headache, unspecified (principal)
CPT/HCPCS: 96372; 99283; J1885

== ENCOUNTER 2021-03-10 20:09 | Emergency (ER) | payer OTHER, MEDICAID, SELFPAY ==
[2021-03-10 20:28] VITALS: BP 161/90; PULSE 93; RESP 16; TEMP 36.6; O2SAT 97; BMI 31.3
--- NOTE | 2021-03-10 20:37 | ED_ITS ---
HPI - Skin/Abscess/Foreign Bdy General Chief complaint: Skin/Abscess/Foreign Body Stated complaint: CYST INSIDE OF RT THIGH TENDER OF BELLY Time Seen by Provider: 03/10/21 20:37 History of Present Illness HPI narrative: 30F smoker with history of reactive airway disease presents with 2 complaints. She has had a painful cyst in her right medial thigh off and on at various times over the past few years and has never sought treatment. Usually will resolve within a day or 2. She states that it returned a few days ago and his last a bit longer than normal, she states that she got some foul- smelling pus out of it earlier today. There is minimal surrounding redness and she denies any fever, chills nor nausea or vomiting. There is no surrounding red streaks. Additionally, she states that about a month ago she was sneezing felt a pop in her abdomen just above her belly button that seemed to get better after a few days but has had episodes over the past month in which the pain seems to be worsening. She denies any palpable bulge. She states that the pain tends to be worse when she sneezes, coughs, stands upper has a bowel movement. She states she still passing gas it is not currently having any pain. Related Data Home Medications Medication Instructions Recorded Confirmed albuterol sulfate 90 mcg/actuation 1 puff INH Q6HP PRN 05/13/18 05/13/18 aerosol inhaler (Ventolin HFA) ibuprofen 600 mg tablet 600 mg PO Q6HP PRN 18 05/13/18 albuterol sulfate 90 mcg/actuation 1 puff INHALATION Q6H PRN 05/17/18 05/17/18 aerosol inhaler (ProAir HFA) Previous Rx's Medication Instructions Recorded VIT#96/FERROUS FUM/FA 1 tab PO QDAY #90 tab 01/27/16 ( Vitamin) medroxyprogesterone 150 mg/mL 150 mg IM X1 #1 ea 06/02/16 intramuscular suspension hydroxyzine pamoate 25 mg capsule 25 mg PO Q4HR PRN #40 cap 05/17/18 oxycodone 5 mg tablet 5 mg PO Q3HR PRN #40 tab 05/17/18 doxycycline hyclate 100 mg tablet 100 mg PO BID #20 tab 03/10/21 Allergies Allergy/AdvReac Type Severity Reaction Status Date / Time venom-honey bee Allergy Intermediate SWELLING Verified 11/02/20 14:58 [BEE VENOM (HONEY BEE)] iodine [IODINE] Allergy Mild RASH Verified 11/02/20 14:58 Review of Systems Review of Systems Narrative: GENERAL: See HPI HEENT: Denies sinus pain, ear pain, sore throat, difficulty swallowing, dizziness. RESPIRATORY: Denies dyspnea, cough, wheezing, hemoptysis, sputum. CARDIOVASCULAR: Denies chest pain, palpitations, orthopnea, edema, GASTROINTESTINAL: See HPI : Denies dysuria, frequency, incontinence, hematuria, urinary retention. MUSCULOSKELETAL: denies weakness, joint pain, or bony pain SKIN: See HPI NEUROLOGIC: Denies weakness, headache, numbness, change in speech, confusion, seizures, incoordination. PSYCHIATRIC: No concerning psychosocial issues. 12 point review of systems is negative except for those stated above Patient History Medical History Asthma Chicken pox (1995) Hayfever Surgical History Anesthesia Status post knee surgery (10/12/14) Family History Mother High cholesterol Grandfather Diabetes mellitus Cancer Pancreatic cancer Social History household members: significant other Smoking Status: Current every day smoker alcohol intake: former Smoking Status: Current every day smoker alcohol intake frequency: other Substance Use Type: does not use Exam Narrative Exam Narrative: GENERAL: [30] year old patient appears stated age. Well- developed patient, in mild distress. HEAD: Atraumatic. Normocephalic. EYES: Pupils equal round and reactive. Extraocular motions intact. No scleral icterus. No injection or drainage. ENT: Nose without bleeding, purulent drainage. Throat without erythema, tonsillar hypertrophy or exudate. Airway patent. NECK: Trachea midline. Non tender CARDIOVASCULAR: Regular rate and rhythm without murmurs, gallops, or rubs. RESPIRATORY: Clear to auscultation. Breath sounds equal bilaterally. No wheezes, rales, or rhonchi. GASTROINTESTINAL: Abdomen soft, small palpable, easily reducible umbilical hernia without overlying redness or warmth. Bowel sounds present in all 4 quadrants EXTREMITIES: No edema or joint tenderness. BACK: Nontender without deformity or crepitance. No flank tenderness. NEURO: AOx3. SKIN: Small 1.5 cm cutaneous abscess versus cyst and right medial thigh with minimal surrounding erythema, minimal induration and no fluctuance. Initial Vital Signs Initial Vital Signs: Vital Signs Temperature 97.8 F 03/10/21 20:28 Pulse Rate 93 H 03/10/21 20:28 Respiratory Rate 16 03/10/21 20:28 Blood Pressure 161/90 H 03/10/21 20:28 Pulse Oximetry 97 03/10/21 20:28 Course Vital Signs Vital signs: Vital Signs - 8 hr 03/10/21 20:28 Temperature 97.8 F Pulse Rate 93 H Respiratory Rate 16 Blood Pressure 161/90 H Pulse Oximetry 97 Discharge Plan Departure Patient Disposition: Home Clinical Impression: Hernia, umbilical Qualifiers: Obstruction and gangrene presence: without obstruction or gangrene Qualified Code(s): K42.9 - Umbilical hernia without obstruction or gangrene Cutaneous abscess Qualifiers: Site of cutaneous abscess: extremity Site of cutaneous abscess of extremity: lower extremity Laterality: right Qualified Code(s): L02.415 - Cutaneous abscess of right lower limb Instructions: Abdominal Hernia, DI for Skin Abscess Activity Restrictions/Additional Instructions: *You have been diagnosed with [small easily reducible umbilical hernia and small nonfluctuant, early abscess of your right thigh. *What to do: *Please continue to take your regular medications as directed. [x ] New medication prescriptions sent to your pharmacy: [[facility] in [place]] [ ] New medication written as a paper prescription [ ] No new medications given *Please follow up with your primary care provider in 2-3 days, call for an appointment. Let them know you were seen in the Emergency Department and that we ask that you be seen in follow up. We will electronically transmit a record of today's note if your PCP is in our system * as we discussed, please avoid heavy lifting, straining on the toilet and constipation as these are likely to worsen your early umbilical hernia. *Return to Emergency Department if you should have any new, worsening or concerning symptoms, such as [fever greater than 101 F, shaking chills, worsening pain, persistent vomiting or other bothersome symptoms] Prescriptions: New doxycycline hyclate 100 mg tablet 100 mg PO BID Qty: 20 RF: 0 No Action VIT#96/FERROUS FUM/FA ( Vitamin) 1 tab PO QDAY Qty: 90 RF: 3 medroxyprogesterone 150 MG/1 ML suspension 150 mg IM X1 Qty: 1 RF: 0 ibuprofen 600 MG tablet 600 mg PO Q6HP PRN (Reason: pain) RF: 0 albuterol sulfate [Ventolin HFA] 90 MCG/PUFF HFA aerosol inhaler 1 puff INH Q6HP PRN (Reason: Asthma) RF: 0 albuterol sulfate [ProAir HFA] 90 mcg/actuation Hfa Aerosol Inhaler 1 puff INHALATION Q6H PRN (Reason: Wheezing) RF: 0 oxycodone 5 mg Tablet 5 mg PO Q3HR PRN (Reason: Pain, Moderate (4-6)) Qty: 40 RF: 0 hydroxyzine pamoate 25 mg Capsule 25 mg PO Q4HR PRN (Reason: Spasms) Qty: 40 RF: 0
== END 2021-03-10 21:16 | disposition home or self-care (01) ==
PROVIDERS: Emergency Provider Emergency Medicine; Family Provider Obstetrics & Gynecology
DX: K42.9 Umbilical hernia without obstruction or gangrene (principal); L02.415 Cutaneous abscess of right lower limb
CPT/HCPCS: 99281

== ENCOUNTER 2021-09-15 19:56 | Emergency (ER) | payer OTHER, MEDICAID, SELFPAY ==
[2021-09-15 20:20] VITALS: BP 128/61; PULSE 75; RESP 18; TEMP 36.4; O2SAT 98
--- NOTE | 2021-09-15 21:03 | ED_ITS ---
HPI - Abdominal Pain General Chief Complaint: Abdominal Pain Stated Complaint: HERNIA ABD PAIN PROBLEMS PASSING STOOLS Time Seen by Provider: 09/15/21 20:44 Source: patient Mode of arrival: Ambulatory History of Present Illness HPI narrative: 30-year-old female daily smoker with a history of a known umbilical hernia presents with a chief complaint of periumbilical pain over at least the past day and some generalized lower abdominal discomfort. She typically can push her hernia back in and has to do it a few times daily but has been having trouble today. She is having difficulty with her bowel movements but is passing gas. She denies dysuria, frequency or urgency. She denies any vaginal bleeding or discharge. She states that her pain seems to be worse when she moves and improves with rest. She denies any fever or chills. She has had no nausea or vomiting. Related Data Home Medications Medication Instructions Recorded Confirmed albuterol sulfate 90 mcg/actuation 1 puff INH Q6HP PRN 05/13/18 03/25/21 aerosol inhaler (Ventolin HFA) montelukast 10 mg tablet 10 mg PO DAILY 05/13/21 05/13/21 Previous Rx's Medication Instructions Recorded albuterol sulfate 90 mcg/actuation 1 puff INHALATION Q6H PRN #8.5 g 05/14/21 aerosol inhaler (ProAir HFA) Allergies Allergy/AdvReac Type Severity Reaction Status Date / Time venom-honey bee Allergy Intermediate SWELLING Verified 05/13/21 14:55 [BEE VENOM (HONEY BEE)] iodine [IODINE] Allergy Mild RASH Verified 05/13/21 14:55 Review of Systems Review of Systems Narrative: GENERAL: Denies chills, fatigue, malaise, fever, sweats. HEENT: Denies sinus pain, ear pain, sore throat, difficulty swallowing, dizziness. RESPIRATORY: Denies dyspnea, cough, wheezing, hemoptysis, sputum. CARDIOVASCULAR: Denies chest pain, palpitations, orthopnea, edema, GASTROINTESTINAL: See HPI : Denies dysuria, frequency, incontinence, hematuria, urinary retention. MUSCULOSKELETAL: denies weakness, joint pain, or bony pain SKIN: Denies rash, skin lesions, or other NEUROLOGIC: Denies weakness, headache, numbness, change in speech, confusion, seizures, incoordination. PSYCHIATRIC: No concerning psychosocial issues. 12 point review of systems is negative except for those stated above Patient History Medical History Asthma Chicken pox (1995) Hayfever Umbilical hernia without obstruction and without gangrene Surgical History Anesthesia Status post knee surgery (10/12/14) Family History Mother High cholesterol Grandfather Diabetes mellitus Cancer Pancreatic cancer Social History household members: significant other Smoking Status: Current every day smoker alcohol intake: former Smoking Status: Current every day smoker alcohol intake frequency: other Substance Use Type: does not use Exam Narrative Exam Narrative: GENERAL: [30] year old patient appears stated age. Well-developed patient, in mild distress. HEAD: Atraumatic. Normocephalic. EYES: Pupils equal round and reactive. Extraocular motions intact. No scleral icterus. No injection or drainage. ENT: Nose without bleeding, purulent drainage. Throat without erythema, tonsillar hypertrophy or exudate. Airway patent. NECK: Trachea midline. Non tender CARDIOVASCULAR: Regular rate and rhythm without murmurs, gallops, or rubs. RESPIRATORY: Clear to auscultation. Breath sounds equal bilaterally. No wheezes, rales, or rhonchi. GASTROINTESTINAL: Abdomen soft, non-tender, nondistended. No evidence of incarcerated umbilical hernia, bowel sounds present throughout EXTREMITIES: No edema or joint tenderness. BACK: Nontender without deformity or crepitance. No flank tenderness. NEURO: AOx3. SKIN: No rash or erythema of visible areas Initial Vital Signs Initial Vital Signs: Vital Signs Temperature 97.6 F 09/15/21 20:20 Pulse Rate 75 09/15/21 20:20 Respiratory Rate 18 09/15/21 20:20 Blood Pressure 128/61 09/15/21 20:20 Pulse Oximetry 98 09/15/21 20:20 Course Orders Ordered: ED Orders 09/15/21 20:23 EKG-12 Lead Stat 09/15/21 21:25 Ictotest Urine Stat Urine Microscopic Stat 09/15/21 21:42 Complete Blood Count AUTO DIFF Stat 09/15/21 21:52 CT abdomen pelvis w con Stat 09/15/21 22:24 Comprehensive Metabolic Panel Stat Lipase Stat Discontinued Medications Sodium Chloride (Normal Saline 0.9%) 1,000 mls @ 1,000 mls/hr IV BOLUS ONE Stop: 09/15/21 22:11 Last Admin: 09/15/21 22:24 Dose: 1,000 mls/hr Documented by: MAURO Vital Signs Vital signs: Vital Signs - 8 hr 09/15/21 20:20 Temperature 97.6 F Pulse Rate 75 Respiratory Rate 18 Blood Pressure 128/61 Pulse Oximetry 98 MDM - Abdominal Pain Lab Data Result diagrams: 09/15/21 21:42 09/15/21 22:24 Labs: Lab Results 09/15/21 09/15/21 09/15/21 Range/Units 21:25 21:25 21:42 WBC 8.8 (4.5-11.0) X10^3/uL RBC 4.60 (4.0-5.2) X10^6/uL Hgb 13.9 (12.0-16.0) g/dL Hct 40.8 (36-46) % MCV 88.7 (80-100) fL MCH 30.2 (26-34) PG MCHC 34.0 (30-36) % RDW 13.7 (11.6-14.8) % Plt Count 297 (150-400) X10^3/uL Neut % (Auto) 50.7 (50-75) % Lymph % (Auto) 36.9 (25-40) % [place] % (Auto) 7.1 (3-14) % Eos % (Auto) 4.4 H (2-4) % Baso % (Auto) 0.9 (0-2) % Neut # (Auto) 4500 (0264-2844) /uL Lymph # (Auto) 3300 (1025-8799) /uL [place] # (Auto) 600 (0-900) /uL Eos # (Auto) 400 (0-450) /uL Baso # (Auto) 100 (0-100) /uL Sodium (137-145) mmol/L Potassium (3.4-5.1) mmol/L Chloride (98-107) mmol/L Carbon Dioxide (22-32) mmol/L BUN (7-17) mg/dL Creatinine (0.52-1.04) mg/dL Estimated GFR (>60) mL/min BUN/Creatinine Ratio (6-22) Glucose (70-100) mg/dL Calcium (8.4-10.2) mg/dL Total Bilirubin (0.2-1.3) mg/dL AST (14-36) IU/L ALT (<35) IU/L Alkaline Phosphatase (38-126) U/L Total Protein (6.3-8.2) g/dL Albumin (3.5-5.0) g/dL Globulin (1.7-4.1) g/dL Albumin/Globulin Ratio (1.0-2.8) Lipase (23-300) U/L Ur Bilirubin Confirm Negative (Negative) Urine RBC 0-1/hpf (0-5/HPF) Urine WBC 0-1/hpf (0-5/HPF) Ur Squamous Epith Cells 1-5 /hpf (0-5/HPF) Calcium Oxalate Crystal Few H Urine Bacteria Moderate (10-30) H (None) Urine Mucus 3+ H (Negative) Ur Culture Indicated? Cult not indicated 09/15/21 Range/Units 22:24 WBC (4.5-11.0) X10^3/uL RBC (4.0-5.2) X10^6/uL Hgb (12.0-16.0) g/dL Hct (36-46) % MCV (80-100) fL MCH (26-34) PG MCHC (30-36) % RDW (11.6-14.8) % Plt Count (150-400) X10^3/uL Neut % (Auto) (50-75) % Lymph % (Auto) (25-40) % [place] % (Auto) (3-14) % Eos % (Auto) (2-4) % Baso % (Auto) (0-2) % Neut # (Auto) (4056-7577) /uL Lymph # (Auto) (5428-5566) /uL [place] # (Auto) (0-900) /uL Eos # (Auto) (0-450) /uL Baso # (Auto) (0-100) /uL Sodium 141 (137-145) mmol/L Potassium 3.7 (3.4-5.1) mmol/L Chloride 108 H (98-107) mmol/L Carbon Dioxide 27 (22-32) mmol/L BUN 8 (7-17) mg/dL Creatinine 0.86 (0.52-1.04) mg/dL Estimated GFR > 60 (>60) mL/min BUN/Creatinine Ratio 9.3 (6-22) Glucose 96 (70-100) mg/dL Calcium 8.8 (8.4-10.2) mg/dL Total Bilirubin 0.2 (0.2-1.3) mg/dL AST 25 (14-36) IU/L ALT 14 (<35) IU/L Alkaline Phosphatase 73 (38-126) U/L Total Protein 6.6 (6.3-8.2) g/dL Albumin 3.8 (3.5-5.0) g/dL Globulin 2.8 (1.7-4.1) g/dL Albumin/Globulin Ratio 1.4 (1.0-2.8) Lipase 61 (23-300) U/L Ur Bilirubin Confirm (Negative) Urine RBC (0-5/HPF) Urine WBC (0-5/HPF) Ur Squamous Epith Cells (0-5/HPF) Calcium Oxalate Crystal Urine Bacteria (None) Urine Mucus (Negative) Ur Culture Indicated? Point of care testing: Point of Care Testing Test Results Negative Urine Dip Bedside Urine Glucose Negative Bedside Urine Bilirubin + 1 Bedside Urine Ketone - Negative Urine Specific [place] 1.030 Bedside Urine Occult Blood +/- Bedside Urine pH 6.0 Bedside Urine Protein - Negative Bedside Urine Urobilinogen +/- 1mg Bedside Urine Nitrite - Negative Bedside Urine Leukocytes - Negative Esterase Imaging Data CT scan - abdomen/pelvis: Radiologist's Impression: Marika Yin??30??F??1990 ? Allergy/Adv: venom-honey bee, iodine (More??) Close Abdomen/Pelvis CT (Signed) Josias Mosqueda - 09/15/21 Pelvis Ultrasound (Signed) Rose Rodríguez - 05/07/20 Knee X-Ray (Signed) Lesa Bañuelos - 12/18/17 Telemetry Strips 01/31/16 Launch?[address] [address] [address] Scan Report Signed Patient: Marika Yin MR#: [id number] : 1990 Acct:[id number] Age/Sex: 30 / F Date of Service: 09/15/21 Loc: ED Accession Number: [id number] ?? Procedure: CT abdomen pelvis w con Ordering Provider: Vivek Stuart D.O. PROCEDURE:? CT ABDOMEN PELVIS W CON ? INDICATIONS:? severe abdominal pain ? TECHNIQUE:? After the administration of IV contrast, axial sections were acquired from the lung bases to the pubic symphysis.? Coronal and sagittal reformats were performed.? For radiation dose reduction, the following was used:? automated exposure control, adjustment of mA and/or kV according to patient size. ? COMPARISON:? None. ? FINDINGS:? Image quality:? Excellent.? ? Lung bases:? Unremarkable.? ? Heart:? No significant findings. ? ? ABDOMEN: Liver:? No focal lesion.? ? Gallbladder:? Not distended.? ? Biliary ducts:? Unremarkable.? ? Pancreas:? No peripancreatic fluid collection. Spleen:? Unremarkable.? ? Adrenal Glands:? No nodule. Kidneys and Ureters:? No hydronephrosis. ? Stomach and Bowel:? Stomach, small bowel loops, and colon are unremarkable.? Diverticulosis.? Mild gaseous distension of the transverse colon.? Normal appendix. Peritoneum:? No abnormal intraperitoneal fluid.? No free air.? ? Ventral Wall: ? Small fat containing umbilical hernia.? There is mild stranding within the fat deep to the hernia. Abdominal Nodes:? No retroperitoneal or mesenteric adenopathy by size criteria.? Somewhat shotty mesenteric nodes in the left abdomen. Vessels:? Aorta and inferior vena cava are normal in size.? ? PELVIS: Pelvic Organs:? Right ovarian cyst measuring 1.7 cm.? Anteverted uterus.? Bladder:? No stone.? Mostly decompressed. ? Pelvic Nodes: No enlarged lymph nodes.? Miscellaneous: No inguinal hernias are seen. ? ? ? Bones:? Unremarkable.? IMPRESSION:? 1. Small fat containing umbilical hernia.? There is mild stranding deep to the fat of the hernia.? No fluid collection. ? 2. No small bowel obstruction. ? 3. No hydronephrosis. ? 4. Right ovarian cyst measuring 1.7 cm. ? ? Dictated by: Josias Mosqueda M.D. on 09/15/2021 at 23:15 ? ? Approved by: Josias Mosqueda M.D. on 09/15/2021 at 23:20 ? MDM Narrative Medical decision making narrative: Patient evaluated lying flat and slight reverse Trendelenburg, her hernia is easily reduced and she has a minimal amount of tenderness at the location of the rent. Otherwise abdomen is soft with bowel sounds present, we did discuss at length about the potential for symptoms being related to a briefly incarcerated hernia versus other and she states that she is uncomfortable without further evaluation as on some levels it feels different and she is concerned. Labs and imaging are reassuring. Patient given return precautions, questions answered to her apparent satisfaction Discharge Plan Departure Patient Disposition: Home Clinical Impression: Umbilical hernia without obstruction and without gangrene Instructions: Abdominal Hernia Activity Restrictions/Additional Instructions: *You have been diagnosed with [umbilical hernia without evidence of incarceration or bowel obstruction. As we discussed, your history and physical exam are very reassuring as are labs and imaging. There is no evidence that there is an emergent problem with her abdomen, and in particular your hernia at this point time *What to do: *Please continue to take your regular medications as directed. [ ] New medication prescriptions sent to your pharmacy: [ ] [ ] New medication written as a paper prescription [ x] No new medications given *Please follow up with your primary care provider in 2-3 days, call for an appointment. Let them know you were seen in the Emergency Department and that we ask that you be seen in follow up. We will electronically transmit a record of today's note if your PCP is in our system * please avoid heavy lifting, prolonged time under feet and straining on the toilet as these will all potentially put your hernia at risk. *If you do not have a primary care provider please contact the [facility] Resource line at [phone]. They will ask some questions about your medical history and help get you set up with a doctor in the community. *Return to Emergency Department if you should have any new, worsening or concerning symptoms, such as [fever greater than 101 F, shaking chills, wor sening pain, persistent vomiting or other bothersome symptoms] Prescriptions: No Action albuterol sulfate [ProAir HFA] 90 mcg/actuation HFA aerosol inhaler 1 puff INHALATION Q6H PRN (Reason: Wheezing) Qty: 8.5 0RF montelukast 10 mg tablet 10 mg PO DAILY 0RF albuterol sulfate [Ventolin HFA] 90 MCG/PUFF HFA aerosol inhaler 1 puff INH Q6HP PRN (Reason: Asthma) 0RF Referrals: Franklyn Vergara MD [Primary Care Provider] - Leighton Jimenez MD [Physician] -
[2021-09-15 21:36] LABS: Ictotest Urine Negative (Negative)
[2021-09-15 21:40] LABS: Bacteria Urine Moderate (10-30); Calcium Oxalate Crystals Urine Few; Mucus Urine 3+ (Negative); RBC Urine 0-1/HPF (0-5/HPF); Squamous Epithelial Cell Urine 1-5 /HPF (0-5/HPF); WBC Urine 0-1/HPF (0-5/HPF)
[2021-09-15 21:41] LABS: Culture Indicated Urine Cult Not Indicated
[2021-09-15 21:51] LABS: Add Manual Diff / Slide Review NO; Basophils Absolute Auto 100 /uL (0-100); Basophils Percent Auto 0.9 % (0-2); Eosinophils Absolute Auto 400 /uL (0-450); Eosinophils Percent Auto 4.4 % (2-4); Hematocrit 40.8 % (36-46); Hemoglobin 13.9 g/dL (12.0-16.0); Lymphocytes Absolute Auto 3300 /uL (1100-4500); Lymphocytes Percent Auto 36.9 % (25-40); Mean Corpuscular Hemoglobin 30.2 PG (26-34); Mean Corpuscular Volume 88.7 fL (80-100); Monocytes Absolute Auto 600 /uL (0-900); Monocytes Percent Auto 7.1 % (3-14); Neutrophils Absolute Auto 4500 /uL (1500-7000); Neutrophils Percent Auto 50.7 % (50-75); Platelet Count 297 X10^3/uL (150-400); Red Cell Distribution Width 13.7 % (11.6-14.8); White Blood Cell Count 8.8 X10^3/uL (4.5-11.0)
--- NOTE | 2021-09-15 21:52 | DI.CT.S_ITS ---
PROCEDURE: CT ABDOMEN PELVIS W CON INDICATIONS: severe abdominal pain TECHNIQUE: After the administration of IV contrast, axial sections were acquired from the lung bases to the pubic symphysis. Coronal and sagittal reformats were performed. For radiation dose reduction, the following was used: automated exposure control, adjustment of mA and/or kV according to patient size. COMPARISON: None. FINDINGS: Image quality: Excellent. Lung bases: Unremarkable. Heart: No significant findings. ABDOMEN: Liver: No focal lesion. Gallbladder: Not distended. Biliary ducts: Unremarkable. Pancreas: No peripancreatic fluid collection. Spleen: Unremarkable. Adrenal Glands: No nodule. Kidneys and Ureters: No hydronephrosis. Stomach and Bowel: Stomach, small bowel loops, and colon are unremarkable. Diverticulosis. Mild gaseous distension of the transverse colon. Normal appendix. Peritoneum: No abnormal intraperitoneal fluid. No free air. Ventral Wall: Small fat containing umbilical hernia. There is mild stranding within the fat deep to the hernia. Abdominal Nodes: No retroperitoneal or mesenteric adenopathy by size criteria. Somewhat shotty mesenteric nodes in the left abdomen. Vessels: Aorta and inferior vena cava are normal in size. PELVIS: Pelvic Organs: Right ovarian cyst measuring 1.7 cm. Anteverted uterus. Bladder: No stone. Mostly decompressed. Pelvic Nodes: No enlarged lymph nodes. Miscellaneous: No inguinal hernias are seen. Bones: Unremarkable. IMPRESSION: 1. Small fat containing umbilical hernia. There is mild stranding deep to the fat of the hernia. No fluid collection. 2. No small bowel obstruction. 3. No hydronephrosis. 4. Right ovarian cyst measuring 1.7 cm. Dictated by: Josias Mosqueda M.D. on 09/15/2021 at 23:15 Approved by: Josias Mosqueda M.D. on 09/15/2021 at 23:20
[2021-09-15] MEDS: SODIUM CHLORIDE 0.9% 1,000 ML 1000 ML IV (22:24)
[2021-09-15 22:49] LABS: Alanine Aminotransferase 14 IU/L (<35); Albumin 3.8 g/dL (3.5-5.0); Albumin Globulin Ratio 1.4 (1.0-2.8); Alkaline Phosphatase 73 U/L (38-126); Aspartate Aminotransferase 25 IU/L (14-36); BUN Creatinine Ratio 9.3 (6-22); Bilirubin Total 0.2 mg/dL (0.2-1.3); Blood Urea Nitrogen 8 mg/dL (7-17); Calcium 8.8 mg/dL (8.4-10.2); Carbon Dioxide 27 mmol/L (22-32); Chloride 108 mmol/L (98-107); Estimated Glomerular Filt Rate > 60 mL/min (>60); Globulin 2.8 g/dL (1.7-4.1); Glucose 96 mg/dL (70-100); HEMOLYSIS < 15 (0-50); Lipase 61 U/L (23-300); Potassium 3.7 mmol/L (3.4-5.1); Sodium 141 mmol/L (137-145); Total Protein 6.6 g/dL (6.3-8.2)
== END 2021-09-15 23:58 | disposition home or self-care (01) ==
PROVIDERS: Emergency Provider Emergency Medicine; Family Provider Obstetrics & Gynecology; PCP Family Medicine
DX: K42.9 Umbilical hernia without obstruction or gangrene (principal); F17.200 Nicotine dependence, unspecified, uncomplicated
CPT/HCPCS: 36415; 74177; 80053; 81003; 81015; 81025; 83690; 85025; 96360; 96361; 99284; Q9967

== ENCOUNTER → 2021-10-13 13:32 | Outpatient (CLI) | payer OTHER, MEDICAID, SELFPAY ==
[2021-10-13 14:40] LABS: COVID19 -Nasal RAPID Negative (Negative)
== END ==
PROVIDERS: Family Provider Obstetrics & Gynecology; PCP Family Medicine; Visit Provider Surgery
DX: Z20.822 Contact with and (suspected) exposure to COVID-19 (principal); Z01.812 Encounter for preprocedural laboratory examination
CPT/HCPCS: 87635; C9803

== ENCOUNTER 2021-10-14 06:22 | Day surgery (SDC) | payer OTHER, MEDICAID, SELFPAY ==
[2021-10-08 09:33] VITALS: BMI 37.9
[2021-10-14] MEDS: ACETAMINOPHEN 325 MG TABLET 975 MG PO (06:58)
[2021-10-14 07:00] VITALS: BP 104/70; PULSE 90; RESP 16; TEMP 36.6; O2SAT 99
[2021-10-14 07:01] VITALS: BMI 37.9
[2021-10-14] MEDS: LACTATED RINGERS 1,000 ML 100 ML IV ×2 (07:20→09:36)
--- NOTE | 2021-10-14 07:34 | SUR.OPER ---
Supine on padded OR bed, head on pillow, arms secured on padded arm boards at <90 degrees abduction, legs uncrossed, safety belt at thigh, tape over blanket over lower legs.
--- NOTE | 2021-10-14 07:46 | PM.PREOP ---
Pre-operative Note COVID-19 COVID-19 status: Negative Result date/Date tested (Pos, Neg/Pending): 10/13/21 Interval Note History & Physical reviewed/Exam performed by Physician: Yes Changes to H&P: No ASA Class (for procedural sedation): II
[2021-10-14] MEDS: CEFAZOLIN 2 GM/20 ML SYRINGE IV (08:07)
[2021-10-14] MEDS: BUPIVACAINE 0.5% (PF) VIAL 30 ML INJ (08:23)
[2021-10-14] MEDS: LIDOCAINE 1% W/EPI 20 ML INJ (08:23)
[2021-10-14 09:22] VITALS: BP 127/71; PULSE 96; RESP 13; TEMP 36.6; O2SAT 100
--- NOTE | 2021-10-14 09:22 | PM.OP.1 ---
Operative Date/Time/Diagnoses Date of procedure: 10/14/21 Time of procedure: 09:22 Pre-op diagnosis: Umbilical Post-op diagnosis: same Procedure & Clinicians Procedure: Open umbilical hernia repair with mesh Same procedure as scheduled: Yes Surgeon: Jamison Moore Anesthesia Type: General Operative Notes Procedure in detail: Ancef was administered. The patient was brought to the operating room, placed on the table in the supine position and general endotracheal anesthesia was induced. The abdomen was prepped and draped in the usual fashion. A time-out was performed. A 6 cm incision was made in the infraumbilical location. Dissection was carried down to the base of the umbilical stalk. The umbilical stalk was divided at its base but no obvious defect was palpated there. Further exploration demonstrated a small 1 cm fascial defect in the supraumbilical position. The hernia sac and contents were cleared from fascia to reveal the fascial ring. Finger was inserted into the preperitoneal space and a very small defect was palpable at the umbilicus so further dissection was needed to visualize the umbilical defect. The umbilical defect was then closed with 2 interrupted 0 Ethibond sutures. The supraumbilical defect was closed with 4 interrupted 0 Ethibond sutures. Additional local was injected into the fascia around the closures. The subcutaneous adipose tissue was cleared off of the anterior sheath circumferentially about 2 cm in each direction. A piece of monofilament polypropylene mesh was trimmed to fit over the fascial closure and secured with Tisseel. Once the Tisseel was dried the umbilical stalk was tacked down to the mesh with a 3-0 Vicryl suture. The skin was closed with multiple interrupted 3-0 Vicryl dermal sutures followed by a running 4 Monocryl subcuticular closure. Steri-Strips were applied and an abdominal binder was applied. EBL: 10 mL Post-operative Condition: stable Disposition: PACU
[2021-10-14 09:27] VITALS: BP 140/76; PULSE 106; RESP 15; O2SAT 100
[2021-10-14 09:32] VITALS: BP 124/73; PULSE 99; RESP 13; O2SAT 100
[2021-10-14] MEDS: OXYCODONE IR 5 MG TABLET PO (09:39)
[2021-10-14 10:07] VITALS: BP 120/81; PULSE 89; RESP 20; TEMP 36.7; O2SAT 100
== END 2021-10-14 09:58 | disposition home or self-care (01) ==
PROVIDERS: Family Provider Obstetrics & Gynecology; PCP Family Medicine; Referring Provider Surgery; Visit Provider Surgery
PROC: (CPT 49585; principal; 2021-10-14 07:45)
DX: K42.9 Umbilical hernia without obstruction or gangrene (principal); J45.909 Unspecified asthma, uncomplicated
CPT/HCPCS: 49585; 81025; J0690; J1100; J1170; J2250; J2405; J2704; J3010

== ENCOUNTER → 2022-01-13 17:01 | Outpatient (CLI) | payer OTHER, MEDICAID, SELFPAY ==
--- NOTE | 2022-01-13 17:06 | DI.RAD.S_ITS ---
PROCEDURE: XR KNEE LT 1TO2V INDICATIONS: laxity and pain of both, jt changes? TECHNIQUE: 2 views of the knee were acquired. COMPARISON: [facility], CR, XR KNEE LT 3V, 12/18/2017, 18:55. FINDINGS: Bones: Postsurgical changes are again seen in distal femoral shaft, lateral femoral condyle and medial portion of proximal tibia unchanged from prior study. Left knee alignment is unchanged from prior study. No gross hardware loosening or failure. No acute fracture or dislocation. No suspicious bony lesions. Soft tissues: No joint effusion. No suspicious soft tissue calcifications. IMPRESSION: Stable and anatomic left knee alignment. Stable postsurgical changes in left knee. No acute fracture or dislocation. No gross hardware loosening or failure. No significant joint effusion. Dictated by: Jose Chapman M.D. on 01/13/2022 at 18:13 Approved by: Jose Chapman M.D. on 01/13/2022 at 18:14
--- NOTE | 2022-01-13 17:06 | DI.RAD.S_ITS ---
PROCEDURE: XR ANKLE LT 2V INDICATIONS: laxity and pain of both, jt changes? TECHNIQUE: 2 views of the ankle were acquired. COMPARISON: None. FINDINGS: Bones: No fractures or dislocations. Ankle mortise is normally aligned. No suspicious bony lesions. Soft tissues: No tibiotalar joint effusion. Achilles tendon appears normal. IMPRESSION: No ankle fracture or dislocation. Intact ankle mortise. No gross soft tissue abnormalities. Dictated by: Jose Chapman M.D. on 01/13/2022 at 18:13 Approved by: Jose Chapman M.D. on 01/13/2022 at 18:13
--- NOTE | 2022-01-13 17:06 | DI.RAD.S_ITS ---
PROCEDURE: XR WRIST RT MIN 3V INDICATIONS: right wrist pain TECHNIQUE: 4 views of the wrist were acquired. COMPARISON: None. FINDINGS: Bones: No fractures or dislocations. No suspicious bony lesions. Scaphoid view: Scaphoid is grossly intact. Soft tissues: No suspicious soft tissue calcifications. IMPRESSION: Unremarkable radiographic examination of right wrist. Dictated by: Jose Chapman M.D. on 01/13/2022 at 18:12 Approved by: Jose Chapman M.D. on 01/13/2022 at 18:13
== END ==
PROVIDERS: Family Provider Obstetrics & Gynecology; PCP Family Medicine; Referring Provider Pediatrics; Visit Provider Pediatrics
DX: M23.8X2 Other internal derangements of left knee (principal); M24.272 Disorder of ligament, left ankle; M25.562 Pain in left knee; M25.572 Pain in left ankle and joints of left foot; M25.531 Pain in right wrist
CPT/HCPCS: 73110; 73560; 73600

== ENCOUNTER 2022-10-14 16:26 | Emergency (ER) | payer OTHER, MEDICAID, SELFPAY ==
[2022-10-14 16:32] VITALS: BP 133/75; PULSE 85; RESP 18; TEMP 36.9; O2SAT 99; BMI 38.3
--- NOTE | 2022-10-14 17:32 | ED_ITS ---
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 She states that she had placed a tire down in front per her normal practice and afterward when she went to stand up she is afraid that she may have twisted or moved wrong because she felt a sharp pain in her low back on the right side similar to her previous sciatica but states it is much worse and is more midline. She his, urinary retention or incontinence. She states that while she was she had low back pain with right-sided sciatica symptoms. States that this is not gone down and is more persistent than intermittent pain like that was. She denies any urinary symptoms like dysuria urinary frequency, denies recent illness, fever chills, states her last bowel movement was today and was normal. She states that she has normal sensation and the only painful part is when she twists to white. She denies any gait changes or other deficit. She denies history of substance abuse, denies fever chills or abdominal pain. This is a work-related injury an L and I claim # [id number] Related Data Previous Rx's Medication Instructions Recorded hydrocodone 5 mg-acetaminophen 325 1 tab PO Q8H PRN pain #10 tabs 10/14/21 mg tablet zafirlukast 10 mg tablet 20 mg PO BID #90 tabs 04/29/22 albuterol sulfate 90 mcg/actuation See Rx Instructions .Route 09/24/22 aerosol inhaler .COMPLEX #9 grams lidocaine 5 % topical patch 1 patch topical DAILY PRN back 10/14/22 (Lidoderm) pain #30 ea methocarbamol 750 mg tablet 750 mg PO Q8H PRN muscle spasm #20 10/14/22 tabs Allergies Allergy/AdvReac Type Severity Reaction Status Date / Time venom-honey bee Allergy Intermediate SWELLING Verified 10/29/21 13:09 [BEE VENOM (HONEY BEE)] iodine [IODINE] Allergy Mild RASH Verified 10/29/21 13:09 Patient History <JACKIE Ramos - Last Filed: 10/14/22 18:46> Medical History (Updated 10/14/22 @ 18:19 by JACKIE Ramos) Asthma Chicken pox (1995) Hayfever Joint laxity of left knee Left ankle pain Left knee pain Ligamentous laxity of left ankle Palpitations Umbilical hernia without obstruction and without gangrene Surgical History Anesthesia History of knee surgery (05/17/18) Status post knee surgery (10/12/14) Family History Mother High cholesterol Grandfather Diabetes mellitus Cancer Pancreatic cancer Social History household members: significant other Smoking Status: Current every day smoker alcohol intake: current Smoking Status: Current every day smoker alcohol intake frequency: other Substance Use Type: marijuana Exam <JACKIE Ramos - Last Filed: 10/14/22 18:46> Initial Vital Signs Initial Vital Signs: Vital Signs Temperature 98.4 F 10/14/22 16:32 Pulse Rate 85 10/14/22 16:32 Respiratory Rate 18 10/14/22 16:32 Blood Pressure 133/75 10/14/22 16:32 Pulse Oximetry 99 10/14/22 16:32 Oxygen Delivery Method Room Air 10/14/22 16:32 <Roberto Simms DO - Last Filed: 10/20/22 19:09> Initial Vital Signs Initial Vital Signs: Vital Signs Temperature 98.4 F 10/14/22 16:32 Pulse Rate 85 10/14/22 16:32 Respiratory Rate 18 10/14/22 16:32 Blood Pressure 133/75 10/14/22 16:32 Pulse Oximetry 99 10/14/22 16:32 Oxygen Delivery Method Room Air 10/14/22 16:32 Course <JACKIE Ramos - Last Filed: 10/14/22 18:46> Orders Ordered: Discontinued Medications Acetaminophen (Acetaminophen 325 Mg Tablet) 975 mg PO NOW ONE Stop: 10/14/22 18:12 Last Admin: 10/14/22 18:37 Dose: 975 mg Documented By: KB Ketorolac Tromethamine (Ketorolac 30 Mg/Ml Vial) 30 mg IM NOW ONE Stop: 10/14/22 18:12 Last Admin: 10/14/22 18:40 Dose: 30 mg Documented By: BHAVANA Lidocaine (Lidocaine Patch 1 Each Adh..Patch) 1 each TOP NOW ONE Stop: 10/14/22 18:12 Last Admin: 10/14/22 18:40 Dose: 1 each Documented By: BHAVANA Methocarbamol (Methocarbamol 500 Mg Tablet) 500 mg PO NOW ONE Stop: 10/14/22 18:12 Last Admin: 10/14/22 18:39 Dose: 500 mg Documented By: BHAVANA Prednisone (Prednisone 20 Mg Tablet) 40 mg PO NOW ONE Stop: 10/14/22 18:12 Last Admin: 10/14/22 18:38 Dose: 40 mg Documented By: BHAVANA Vital Signs Vital signs: Vital Signs - 8 hr 10/14/22 16:32 Temperature 98.4 F Pulse Rate 85 Respiratory Rate 18 Blood Pressure 133/75 Pulse Oximetry 99 Oxygen Delivery Method Room Air <Roberto Simms DO - Last Filed: 10/20/22 19:09> Orders Ordered: Discontinued Medications Acetaminophen (Acetaminophen 325 Mg Tablet) 975 mg PO NOW ONE Stop: 10/14/22 18:12 Last Admin: 10/14/22 18:37 Dose: 975 mg Documented By: BHAVANA Ketorolac Tromethamine (Ketorolac 30 Mg/Ml Vial) 30 mg IM NOW ONE Stop: 10/14/22 18:12 Last Admin: 10/14/22 18:40 Dose: 30 mg Documented By: BHAVANA Lidocaine (Lidocaine Patch 1 Each Adh..Patch) 1 each TOP NOW ONE Stop: 10/14/22 18:12 Last Admin: 10/14/22 18:40 Dose: 1 each Documented By: BHAVANA Methocarbamol (Methocarbamol 500 Mg Tablet) 500 mg PO NOW ONE Stop: 10/14/22 18:12 Last Admin: 10/14/22 18:39 Dose: 500 mg Documented By: BHAVANA Prednisone (Prednisone 20 Mg Tablet) 40 mg PO NOW ONE Stop: 10/14/22 18:12 Last Admin: 10/14/22 18:38 Dose: 40 mg Documented By: BHAVANA Vital Signs Vital signs: Vital Signs - 8 hr 10/14/22 16:32 Temperature 98.4 F Pulse Rate 85 Respiratory Rate 18 Blood Pressure 133/75 Pulse Oximetry 99 Oxygen Delivery Method Room Air MDM - Back Pain/Injury <Yolanda Dana Tinoco [facility] - Last Filed: 10/14/22 18:46> Lab Data Labs: Lab Results 10/14/22 Range/Units 17:34 Urine Color Yellow Urine Appearance Cloudy Urine pH 7.0 (4.5-8.0) Ur Specific [place] 1.015 (1.000-1.035) Urine Protein Negative (Negative) Urine Glucose (UA) Negative (Negative) g/dL Urine Ketones Negative (NEGATIVE) Urine Occult Blood Negative (Negative) Urine Nitrate Negative (Negative) Urine Bilirubin Negative (NEGATIVE) Urine Urobilinogen 1.0 (0.2) E.U./dL Ur Leukocyte Esterase Negative (NEGATIVE) Urine RBC None seen (0-5/HPF) Urine WBC Not Reportable Ur Squamous Epith Cells 0-1 /hpf (0-5/HPF) Amorphous Sediment 2+ Urine Bacteria None seen (None) Ur Culture Indicated? Cult not indicated Point of Care Testing Test Results Negative MDM Narrative Medical decision making narrative: Chief Complaint: Low back pain/injury Independent historian: patient Multiple etiologies for patient's symptoms considered including, but not limited to: disc injury/herniation, radiculopathy, paraspinal or other muscular strain, chronic pain, acute fracture, urinary tract infection, osteoarthritis, degenerative disc disease, cauda equina, osteomyelitis, epidural abscess, spinal stenosis, ligamental injury. I have independently reviewed the patient's vital signs and nursing notes as well as prior records if available. Suspect likely musculoskeletal etiology strain/sprain,/acute exacerbation of chronic low back pain. No back pain red flags on history or physical. No history of IV substance use, or bony tenderness to palpation, no trauma, no bony tenderness to palpation, afebrile, no CVAT, no urinary symptoms. No bowel or urinary incontinence or retention, no saddle anesthesia, no new/worsening distal weakness, decreased reflexes or foot drop. Pt is nontoxic appearing. Patient has soft tissue tenderness to palpation. Pt is neurovascularly intact distally, afebrile, without immunosuppression or evidence of infection, peritoneal signs, hypertensive crisis, incontinence, or meningeal signs. This is a work-related injury an L and I claim # [id number] Patient's symptoms improved over duration of stay with above-stated therapies. Discharge diagnosis, return precautions and plan discussed with patient followed by verbalization of understanding. Social considerations that may affect disposition: none Questions are addressed and there is agreement with the plan and for follow-up. Patient is appropriate for outpatient management. MIPS: This encounter doesn't have any diagnosis' associated with MIPS criteria. Questions are addressed and there is agreement with the plan and for follow-up. I consulted with the ED attending physician Dr. Simms as needed for higher level of care considerations and they were available for discussion and recommendations regarding plan of care and diagnostic testing. Patient is appropriate for outpatient management. <Roberto Simms, DO - Last Filed: 10/20/22 19:09> Lab Data Labs: Lab Results 10/14/22 Range/Units 17:34 Urine Color Yellow Urine Appearance Cloudy Urine pH 7.0 (4.5-8.0) Ur Specific [place] 1.015 (1.000-1.035) Urine Protein Negative (Negative) Urine Glucose (UA) Negative (Negative) g/dL Urine Ketones Negative (NEGATIVE) Urine Occult Blood Negative (Negative) Urine Nitrate Negative (Negative) Urine Bilirubin Negative (NEGATIVE) Urine Urobilinogen 1.0 (0.2) E.U./dL Ur Leukocyte Esterase Negative (NEGATIVE) Urine RBC None seen (0-5/HPF) Urine WBC Not Reportable Ur Squamous Epith Cells 0-1 /hpf (0-5/HPF) Amorphous Sediment 2+ Urine Bacteria None seen (None) Ur Culture Indicated? Cult not indicated Point of Care Testing Test Results Negative Discharge Plan Departure Patient Disposition: Home Clinical Impression: Acute radicular low back pain, Work related injury Injury of low back Qualifiers: Encounter type: initial encounter Qualified Code(s): S39.92XA - Unspecified in jury of lower back, initial encounter Instructions: DI for Back Pain With Sciatica Activity Restrictions/Additional Instructions: *You have been diagnosed with low back pain with sciatica, a flare of this related to your injury. Take the next 3 days off of work to allow yourself to rest, avoid exertional activities, heavy lifting, I have given you some weight restrictions and I encourage you to follow up with your primary care provider for referral to physical therapy. You may benefit from steroid injections in the future, but right now the idea is to calm down the flare and get you back to your normal activity level. I hope you feel better soon, please take Tylenol and ibuprofen every 6 hours as needed, okay to use a pain pill for breakthrough pain. Muscle relaxer every 6-8 hours for muscle spasms, and take prednisone every morning with food and water to help decrease the inflammation. Use something topical to cut the pain down and use heat and gentle range of motion throughout the day to avoid getting stiff. *What to do: *Please continue to take your regular medications as directed. [x ] New medication prescriptions sent to your pharmacy: [[facility]] [ ] New medication written as a paper prescription [ ] No new medications given *Please call and schedule follow up with your primary care provider in 2-3 days, at least for an update. Let them know you were seen in the Emergency Department for the above problem. We will electronically transmit a record of today's note if your PCP or specialist is in our system. *If you do not have a primary care provider please contact [phone] to establish care with one of the [facility] primary care providers. *Return to the Emergency Department for worsening symptoms, inability to keep liquids down, fever greater than 101F, chills, or other concerning symptom. Prescriptions: New methocarbamol 750 mg tablet 750 mg PO Q8H PRN (Reason: muscle spasm) Qty: 20 0RF lidocaine [Lidoderm] 5 % adhesive patch,medicated 1 patch topical DAILY PRN (Reason: back pain) Qty: 30 0RF Rx Instructions: leave on most painful area for up to 12 hrs No Action zafirlukast 10 mg tablet 20 mg PO BID Qty: 90 0RF Rx Instructions: must be taken on empty stomach, at least 1 hr before or 2 hrs after a meal/food albuterol sulfate 90 mcg/actuation HFA aerosol inhaler See Rx Instructions .ROUTE .COMPLEX Qty: 9 0RF Dose Instruction: INHALE 1 PUFF BY MOUTH EVERY 6 HOURS NEEDED FOR WHEEZING Rx Instructions: INHALE 1 PUFF BY MOUTH EVERY 6 HOURS NEEDED FOR WHEEZING hydrocodone-acetaminophen 5-325 mg tablet 1 tab PO Q8H PRN (Reason: pain) Qty: 10 0RF Referrals: Franklyn Vergara MD [Primary Care Provider] - Stand Alone Forms: Patient Portal/API <Roberto Simms DO - Last Filed: 10/20/22 19:09> Cosign ED Attending Cosignature Attestation: Dr Simms Co-Sign Statement: I was available for consultation during this patient's emergency department visit. This chart is signed by myself for administrative purposes only. I did not have direct contact with this patient during this visit. They were seen independently by the APC.
--- NOTE | 2022-10-14 17:33 | DI.RAD.S_ITS ---
PROCEDURE: XR LUMBAR SPINE 2-3V INDICATIONS: twisting injury with radiculopathy yesterday TECHNIQUE: 3 views of the lumbar spine were acquired. COMPARISON: None. FINDINGS: Bones: 5 dye-dye-avfkhga vertebrae are present. Rudimentary ribs at T12. There is normal bony alignment. No vertebral body compression fractures. No suspicious bony lesions. Soft tissues: Overlying bowel gas pattern is normal. No suspicious soft tissue calcifications. IMPRESSION: 1. No acute fracture. No osseous lesion. If symptoms and/or clinical suspicion for pathology persist, further assessment with repeat plain films, or nonemergent outpatient follow-up MRI may be helpful for further assessment. There is no indication for further emergent imaging. Dictated by: Alan Vela M.D. on 10/14/2022 at 17:57 Approved by: Alan Vela M.D. on 10/14/2022 at 17:58
[2022-10-14 18:15] LABS: Appearance Urine UA CLOUDY; Bilirubin Urine UA NEGATIVE (NEGATIVE); Color Urine UA YELLOW; Glucose Urine UA NEGATIVE (Negative); Ketones Urine UA NEGATIVE (NEGATIVE); Leukocyte Esterase Urine UA NEGATIVE (NEGATIVE); Nitrite Urine UA NEGATIVE (Negative); Occult Blood Urine UA NEGATIVE (Negative); Protein Urine UA NEGATIVE (Negative); Specific Gravity Urine UA 1.015 (1.000-1.035)
[2022-10-14 18:27] LABS: Amorphous Sediment Urine 2+; Bacteria Urine None Seen; Culture Indicated Urine Cult Not Indicated; RBC Urine None Seen (0-5/HPF); Squamous Epithelial Cell Urine 0-1 /HPF (0-5/HPF)
[2022-10-14] MEDS: ACETAMINOPHEN 325 MG TABLET 975 MG PO (18:37)
[2022-10-14] MEDS: predniSONE 20 MG TABLET 40 MG PO (18:38)
[2022-10-14] MEDS: methocarbamoL 500 MG TABLET PO (18:39)
[2022-10-14] MEDS: KETOROLAC 30 MG/ML VIAL IM (18:40)
[2022-10-14] MEDS: LIDOCAINE PATCH 1 EACH ADH..PATCH TOP (18:40)
[2022-10-14 18:57] VITALS: BP 124/56; PULSE 87; RESP 18; O2SAT 99
== END 2022-10-14 18:58 | disposition home or self-care (01) ==
PROVIDERS: Emergency Provider Nurse Practitioner Critical Care Medicine; Family Provider Obstetrics & Gynecology; PCP Family Medicine
DX: S39.92XA Unspecified injury of lower back, initial encounter (principal); X50.1XXA Overexertion from prolonged static or awkward postures, initial encounter; Y99.0 Civilian activity done for income or pay
CPT/HCPCS: 72100; 81001; 81025; 96372; 99283; 99284; J1885